=== PATIENT | male | born 1960 | race Caucasian/White ===

== ENCOUNTER 2020-02-25 21:45 | Emergency (ER) | payer BC, SELFPAY ==
[2020-02-25 21:46] VITALS: BP 172/104; PULSE 106; RESP 18; TEMP 36.7; O2SAT 95; BMI 36.9
--- NOTE | 2020-02-25 22:16 | ED.VISSUMM ---
- ER Visit Summary Date of Service: 02/25/20 Chief Complaint: [Body aches and fever] History of Present Illness: The patient is a 59 M [presents the emergency department complaint of body aches for couple of days. Patient states that he came home from work today and felt very achy and checked his temperature and it was 100.7. Patient has minimal cough. Patient denies sore throat. He denies rashes. He denies any exposures to anybody with COVID-19. Denies any sick contacts. He denies dysuria although he has had some frequency. He denies abdominal pain. Patient has had 2-3 episodes of diarrhea this afternoon. He has had no vomiting.] She has history of diabetes, hypertension, high cholesterol, and coronary artery disease. Physical Examination: [HEENT-PERRLA, EOMI. Cranial nerves II through XII grossly intact. TMs clear. Mucous membranes moist. No adenopathy. Cardiovascular-regular rate and rhythm without murmur or ectopy Lungs-clear to auscultation, chest wall stable without crepitus or subcu emphysema Abdomen-normoactive bowel sounds, soft, nontender, no rebound or rigidity, no peritoneal signs. Extremities-intact ?4, normal range of motion, normal pulses, atraumatic. No evidence of cellulitis.] Test Results: [CBC with differential was unremarkable. Chemistries unremarkable. COVID-19 test ordered and pending. Urinalysis unremarkable.] Emergency Department Course and Treatment: [9 established and patient was given normal saline.] Treatment Plan: [At this point I recommended self quarantining for 14 days. Patient should still quarantine even if COVID test negative as no other explanation at this time for the fever and body aches.] Disposition: [Discharged home in stable condition] Impression: [Viral syndrome-rule out COVID-19 infection] This note was generated with [employer] dictation software. It may contain incorrect words, spelling, and punctuation that were not noted in review of the chart prior to signing ED Disposition - Plan for ED Patient: Referrals: Farhat Gómez DO [Primary Care Provider] -
[2020-02-25] MEDS: 0.9% Normal Saline 1,000 ML 150 ML IV (22:45)
[2020-02-25 22:49] VITALS: BP 162/99; PULSE 104; RESP 16; TEMP 36.7; O2SAT 98
[2020-02-25 22:58] LABS: Absolute Neutrophil Count 6.5 X10^3/uL (2.0-7.7); Basophil# 0.02 X10^3/uL; Basophil% 0.3 % (0-1); Eosinophil# 0.04 X10^3/uL; Eosinophils% 0.5 % (0-5); Hematocrit 40.1 % (40-54); Hemoglobin 13.4 g/dL (13.0-16.5); Lymphocyte % 9.3 % (19-41); Mean Corp Hgb Conc 33.4 g/dL (32-36); Mean Corpuscular Volume 92.8 fL (80-94); Mean Platelet Vol. 11.1 fl (6.2-12.0); Monocyte# 0.25 X10^3/uL; Monocyte% 3.3 % (0-10); NRBC Flagged by Analyzer 0 % (0-5); Neutrophil % 86.3 % (47-70); Platelet Count 217 K/mm3 (150-450); RBC Distribution Width CV 13.8 % (11.6-14.6); Red Blood Count 4.32 M/mm3 (4.6-6.2); White Blood Count 7.5 K/mm3 (4.4-11.0)
[2020-02-25 23:05] VITALS: BP 162/99; PULSE 104; RESP 15; O2SAT 98
[2020-02-25 23:10] LABS: Anion Gap 6 (5-15); BUN 14 mg/dL (7-18); Calcium,Total 8.8 mg/dL (8.5-10.1); Chloride 103 mmol/L (98-107); EST Glomerular Filtration Rate 81 mL/min (>60); Est Glom Filt Rate - Afr Amer 98 mL/min (>60); Estimated Creatinine Clearance 77.57 ml/min; Glucose 194 mg/dL (74-106); Potassium 3.9 mmol/L (3.5-5.1); Sodium Level 135 mmol/L (136-145)
[2020-02-25 23:16] LABS: Bacteria 0 SEEN /hpf (None Seen); Mucous, Urine 0 SEEN /hpf (<or=2+); Red Blood Cells-Urine 0 SEEN /hpf (0-5); Squamous Epithelial Cells - UA 0 SEEN /hpf (0-5); White Blood Cells 0 SEEN /hpf (0-5)
[2020-02-25 23:20] LABS: Lactic Acid 1.4 mmol/L (0.4-1.9)
[2020-02-25 23:27] LABS: Color, Urine Yellow (Yellow); Glucose, Dipstick 50 mg/dl (Normal); Ketone-Dipstick Negative (Negative); Leukocyte Esterase-Dipstick Negative /ul (Negative); Nitrite-Dipstick Negative (Negative); Occult Blood-Urine Negative /ul (Negative); Protein-Dipstick Negative (Negative); Specific Gravity, Urine 1.015 (1.002-1.030); Urine Bilirubin Dipstick Negative (Negative); Urine Clarity Clear (Clear); Urine Urobilinogen Normal (Normal)
--- NOTE | 2020-02-25 23:44 | ED.DEP ---
ED Disposition - Plan for ED Patient: Instructions: ED Viral Syndrome Referrals: Farhat Gómez DO [Primary Care Provider] - 5-7 Days
[2020-02-26 00:04] VITALS: PULSE 78; RESP 16; O2SAT 97
== END 2020-02-26 00:05 | disposition home or self-care (01) ==
LOC: ED 22:23
PROVIDERS: Emergency Provider Emergency Medicine; PCP Family Medicine
DX: B34.9 Viral infection, unspecified (principal); I25.10 Atherosclerotic heart disease of native coronary artery without angina pectoris; I10 Essential (primary) hypertension; E11.9 Type 2 diabetes mellitus without complications; E78.00 Pure hypercholesterolemia, unspecified; Z79.84 Long term (current) use of oral hypoglycemic drugs; Z79.899 Other long term (current) drug therapy
CPT/HCPCS: 80048; 81001; 83605; 85025; 87040; 87077; 87186; 87635; 96360; 99283; G2023; J7030; A4216; U0003

== ENCOUNTER 2020-11-07 04:12 | Observation (INO) | payer BC, SELFPAY ==
[2020-11-07] VITALS (9 sets, daily range): BP systolic 145–181; BP diastolic 85–120; PULSE 70–87; RESP 12–20; TEMP 36.1–36.8; O2SAT 96–98; BMI 34.6; BMI 34.1; BMI 34.2
--- NOTE | 2020-11-07 04:21 | EKG12_ITS ---
Test Reason : DYSRHYTHMIA Blood Pressure : / mmHG Vent. Rate : 085 BPM Atrial Rate : 085 BPM P-R Int : 158 ms QRS Dur : 094 ms QT Int : 382 ms P-R-T Axes : 057 -28 058 degrees QTc Int : 454 ms Normal sinus rhythm Septal infarct , age undetermined Inferior infarct , age undetermined Abnormal ECG Confirmed by NIRMALA BURK, DAVIAN ([id number]), health editor IDRIS GRIFFIN ([id number]) on 11/09/2020 1:39:12 PM Referred By: ALYSHA Confirmed By:DAVIAN SILVESTRE MD
--- NOTE | 2020-11-07 04:21 | RAD_ITS ---
HISTORY: Neuro deficit, acute, stroke suspected EXAM: XR Chest 1 View: COMPARISON: January 20, 2016 FINDINGS: # of images incl. paperwork: 1 Thoracolumbar spinal fixation surgery hardware is in place and incompletely imaged but unchanged Lungs are clear. Heart is not enlarged. No acute osseous pathology perceived. Pulmonary vascularity is distinct. No effusions. RAD/Chest 1 View IMPRESSION: No acute cardiopulmonary disease perceived. at 1231 Reported and signed by: Ramses Parker MD Electronically Signed: Ramses Parker MD at 5:30 EDT Tel , Service support ,
--- NOTE | 2020-11-07 04:22 | CT_ITS ---
We are attempting to reach an attending provider to discuss findings. An addendum with communication details will be sent when the communication is complete. History: Neuro deficit, acute, stroke suspected TECHNIQUE: Noncontrast axial images were obtained of the brain. Subsequently, routine carotid CT angiogram protocol was performed without and with IV contrast. In addition, images were obtained of the [place]. Nascet criteria using the distal ICAs for comparison were used for evaluation of stenoses. 3D reconstructions were reviewed. A radiation dose optimization technique was used for this scan. IV Contrast dosage and agent: IV 100mL [id number] COMPARISON: None FINDINGS: --CT BRAIN: BRAIN PARENCHYMA: No intra- or extra-axial hemorrhage. No evidence of acute infarct. No intracranial mass or mass effect. There is preservation of the bridges/white matter interface. Posterior fossa structures are unremarkable. Old lacunar infarct involving some of the right caudate nucleus, the anterior limb of the right internal capsule, and some of the anterior aspect of the lentiform nucleus. Physiologic calcification within the medial aspect of bilateral lentiform nuclei and deep and CSF SPACES: Appropriate for age. No hydrocephalus. Basal cisterns are patent. CALVARIUM, SKULL BASE, PARANASAL SINUSES AND MASTOID AIR CELLS: Clear. No discrete lytic or blastic abnormalities. ORBITS: Both globes, extraocular muscles, optic nerves and retrobulbar fat appear unremarkable. ASPECTS Score for Acute Strokes: 10 --CTA NECK: AORTIC ARCH AND BRANCHES: Normal anatomy, patent. RIGHT CCA: No occlusion, significant stenosis or dissection. RIGHT ICA: No occlusion, significant stenosis or dissection. LEFT CCA: No occlusion, significant stenosis or dissection. Within the left carotid bulb and LEFT ICA: No occlusion, significant stenosis or dissection. RIGHT VERTEBRAL ARTERY: No occlusion, significant stenosis or dissection. LEFT VERTEBRAL ARTERY: No occlusion, significant stenosis or dissection. NECK SOFT TISSUES: Unremarkable. --CTA HEAD: --Anterior circulation: ICAs: No significant stenosis at the intracranial/visualized segments. ACAs: No significant stenosis at the visualized segments. ACOM: Present. MCAs: No significant stenosis at the visualized segments. --Posterior circulation: PCOMs: Posterior communicating arteries are not perceived nozzle and sleeve worker: No significant stenosis at the visualized segments. BASILAR ARTERY: No significant stenosis. VERTEBRAL ARTERIES: No significant stenosis at the intradural/visualized segments. No evidence of intracranial aneurysm or vascular malformation. CT/STROKE CTA Head AND Neck W/Con IMPRESSION: Old lacunar infarct within the right basal ganglia. Some calcific plaque within the left carotid bulb with less than 20% stenosis. No aneurysm, occlusion, or dissection. Individualized dose optimization techniques were used for this CT. at 0554 Reported and signed by: Ramses Parker MD Electronically Signed: Ramses Parker MD at 5:53 EDT Tel , Service support ,
--- NOTE | 2020-11-07 04:23 | ED.DCSUM_ITS ---
History of Present Illness Chief Complaint: Weakness Informant: Patient, Significant Other Occurred: Today - JPTA Mechanism/Context: Same level fall Location: left elbow Quality of Pain: - - sore Current Severity: Mild Maximum Severity: Mild Worsened by: nothing Relieved by: nothing Associated Symptoms: Weakness - LLE, Inability to ambulate - transiently, couple mins. Negative for: Parasthesias, Loss of consciousness, Amnesia Narrative: Patient states he woke up in the middle of the night this morning to go use the bathroom, prior to getting out of bed he noticed that his left lower extremity did not seem to be working properly. He laid there for couple minutes trying to sort it out and then went to the bathroom and was able to walk to it okay. After using the bathroom, he turned to walk back to his bed, but his left leg seemed to give out on him causing him to fall to the floor versus his left elbow, without any other injury, and while on the floor he noticed his left leg was weak and he was unable to get up as result of it until eventually he was ab le to. He states there was no numbness at any point in time. He denies any trouble speaking or understanding others or numbness or weakness in either one of his arms. - Past Medical History (1) Type 2 diabetes mellitus Status: Chronic (2) HTN (hypertension) Status: Chronic Past Medical History - Allergies and Home Meds Allergies/Adverse Reactions: Allergies No Known Allergies Allergy (Verified 11/07/20 04:22) Primary Care Physician: Farhat Gómez DO [Primary Care Provider] - Surgical History: herniorrhaphy, total knee arthroplasty - arthroscopic knee alcantara rgery on both knees. Lives: Spouse/ Significant Other Smoking Status: Former smoker Review of Systems General: Denies: Chills, Fever, Sweats Eyes: Denies: Visual changes - bilaterally, Diplopia ENT: Denies: Rhinorrhea, Sore throat Cardiovascular: Denies: Chest pain, Palpitations Respiratory: Denies: Dyspnea, Cough, Dyspnea on exertion Gastrointestinal: Denies: Abdominal pain, Nausea, Vomiting, Diarrhea, Melena, Hematochezia Genitourinary: Denies: Dysuria, Hematuria, Frequency Musculoskeletal: Denies: Back pain, Extremity Pain Skin: Reports: Wounds. Denies: Rash Neurological: Reports: Weakness. Denies: Headache, Parasthesia, Numbness Physical Exam Vital Signs/Narrative: Vital Signs Temp Pulse Resp BP Pulse Ox 11/07/20 04:15 97.8 F 87 20 H 181/120 H 97 NIH Stroke Scale/Score (NIHSS) from [place] on 11/07/2020 All calculations should be rechecked by clinician prior to use RESULT SUMMARY: 0 points NIH Stroke Scale INPUTS: 1A: Level of consciousness ?> 0 = Alert; keenly responsive 1B: Ask month and age ?> 0 = Both questions right 1C: 'Blink eyes' & 'squeeze hands' ?> 0 = Performs both tasks 2: Horizontal extraocular movements ?> 0 = Normal 3: Visual baig ?> 0 = No visual loss 4: Facial palsy ?> 0 = Normal symmetry 5A: Left arm motor drift ?> 0 = No drift for 10 seconds 5B: Right arm motor drift ?> 0 = No drift for 10 seconds 6A: Left leg motor drift ?> 0 = No drift for 5 seconds 6B: Right leg motor drift ?> 0 = No drift for 5 seconds 7: Limb Ataxia ?> 0 = No ataxia 8: Sensation ?> 0 = Normal; no sensory loss 9: Language/aphasia ?> 0 = Normal; no aphasia 10: Dysarthria ?> 0 = Normal 11: Extinction/inattention ?> 0 = No abnormality Inital Vital Signs reviewed: Yes General: Well nourished, Well developed, - - NAD Head: Normocephalic, Atraumatic Eyes: Perrl, EOMI ENT: TM's clear, No hemotympanum or drainage, No trauma Neck: Nontender, Full ROM Cardiovascular: Regular rate, Regular rhythm, No murmurs. Negative for: Tachycardia Respiratory: No distress, CTA bilaterally, Chest nontender Abdomen: Soft, Nontender, Nondistended, Normal bowel sounds Back: Nontender Extremeties: 1 cm full-thickness laceration with venous oozing, clean, no foreign material, at the tip of the left olecranon. No other injuries. Full range of motion throughout all joints of all 4 extremities, no bony tenderness. Skin: Normal color, No rash Neurological: Alert, Oriented x3, Cranial nerves II-XII grossly intact, Normal Strength, Normal Sensation, Normal Gait Psychological: Normal affect, Normal Mood Diagnostic/Tx/Re-eval Chest X-Ray - ED: 1 View, Read by ED Physician, No Acute Disease, No Infiltrates Impressions Chest X-Ray 11/07/20 04:21 IMPRESSION: No acute cardiopulmonary disease perceived. at 0531 Reported and signed by: Ramses Parker MD Electronically Signed: Ramses Parker MD at 5:30 EDT Tel , Service support , Head/Neck CTA 11/07/20 04:22 IMPRESSION: Old lacunar infarct within the right basal ganglia. Some calcific plaque within the left carotid bulb with less than 20% stenosis. No aneurysm, occlusion, or dissection. Individualized dose optimization techniques were used for this CT. at 0554 Reported and signed by: Ramses Parker MD Electronically Signed: Ramses Parker MD at 5:53 EDT Tel , Service support , ADDENDUM: 11/07/20 0622 IMPRESSION: Old lacunar infarct within the right basal ganglia. Some calcific plaque within the left carotid bulb with less than 20% stenosis. No aneurysm, occlusion, or dissection. Individualized dose optimization techniques were used for this CT. at 0554 Reported and signed by: Ramses Parker MD N.B. : The above information has been verbally conveyed by Ramses Parker MD to Dr. Finn Mendez MD, on 11/07/2020 06:15:08 (ET). Electronically Signed: Ramses Parker MD at 5:53 EDT Tel , Service support , 11/07/20 04:21 Chest 1 View [RAD] Stat 11/07/20 04:22 STROKE CTA Head AND Neck W/Con [CT] Stat Laboratory Results 11/07/20 11/07/20 11/07/20 04:36 04:41 04:41 WBC 4.7 RBC 4.82 Hgb 14.9 Hct 45.0 MCV 93.4 MCH 30.9 MCHC 33.1 RDW Std Deviation 49.6 H RDW Coeff of Dio 14.4 Plt Count 218 MPV 11.1 Immature Gran % (Auto) 0.000 Neut % (Auto) 54.1 Lymph % (Auto) 27.3 Edgar % (Auto) 14.8 H Eos % (Auto) 3.2 Baso % (Auto) 0.6 Absolute Neuts (auto) 2.5 Absolute Lymphs (auto) 1.27 Nucleated RBC % 0 PT 12.3 INR 1.0 APTT 27.2 Sodium Potassium Chloride Carbon Dioxide Anion Gap BUN Creatinine Estim Creat Clear Calc Est GFR (MDRD) Af Amer Est GFR (MDRD) Non-Af BUN/Creatinine Ratio Glucose Calcium Troponin I POC Glucose 175 H 11/07/20 04:41 WBC RBC Hgb Hct MCV MCH MCHC RDW Std Deviation RDW Coeff of Dio Plt Count MPV Immature Gran % (Auto) Neut % (Auto) Lymph % (Auto) Edgar % (Auto) Eos % (Auto) Baso % (Auto) Absolute Neuts (auto) Absolute Lymphs (auto) Nucleated RBC % PT INR APTT Sodium 139 Potassium 4.2 Chloride 106 Carbon Dioxide 26.0 Anion Gap 7 BUN 22 H Creatinine 0.90 Estim Creat Clear Calc 90.64 Est GFR (MDRD) Af Amer 111 Est GFR (MDRD) Non-Af 91 BUN/Creatinine Ratio 24.6 H Glucose 191 H Calcium 9.1 Troponin I < 0.015 POC Glucose - Rhythm Strip Rhythm Strip: Sinus Rhythm Rate: 85 Ectopy: None - EKG Initial EKG Interpretation: Sinus Rhythm, No Acute Injury Pattern, - - old inf and ant- septal infarcts Prior: Unchanged - relatively, when compared w/ last EKG which was when pt had ant-septal STEMI - Medical Decision Making CT angiography is negative for anything acute. Patient remained symptom-free with an NIHSS of 0 on multiple reevaluations. His pressure remained elevated but it did come down compared to what it started out, down to 155/104. Given that this patient has history of coronary disease, I am concerned about the possibility that this could have been a TIA however he had significant weakness in his leg that lasted very short period of time relatively. His ABCD 2 score is 4, assuming that the duration of his weakness was less than 10 minutes. Given this, I think admitting him for further work-up would be reasonable. Certainly this could have been a transient peripheral neuropathy and not [employer] in origin, however he does have an old lacunar infarct seen on the CT (with no history of a clinical stroke) as well as some carotid disease, so I think admitting for stroke work-up is reasonable. Procedures - Lacerations Left elbow Length: 1 cm Depth: Fascia - Olecranon bursa seen within the wound Shape: Linear Prep: Sterile Conditions, Chlorhexadine Laceration Repair: Lidocaine with epi - 0.5 cc Irrigated (ml): 50 Number of Sutures/Kane: 1 Suture Information: Simple, Horizontal, Mattress, 4-0 ED Disposition - Plan for ED Patient: Disposition: Acute Care Hospital [facility] [place] Diagnosis: Transient left leg weakness, Laceration of left elbow Referrals: Farhat Gómez DO [Primary Care Provider] -
[2020-11-07] MEDS: Lidocaine/Epi/Tetracaine 50 ML 1 APPLIC TOPICAL (04:44)
[2020-11-07] MEDS: Contrast Allergy Safety Check IV (04:44)
[2020-11-07] MEDS: Lidocaine 1% /Epi 1:100 (20ml) 20 ML Vial INFILT (04:44)
[2020-11-07 04:50] LABS: Bedside Glucose 175 mg/dL (70-110)
[2020-11-07 04:51] LABS: Absolute Lymphocyte Count 1.27 X10^3/uL (0.83-4.51); Absolute Neutrophil Count 2.5 X10^3/uL (2.0-7.7); Basophil# 0.03 X10^3/uL; Basophil% 0.6 % (0-1); Eosinophil# 0.15 X10^3/uL; Eosinophils% 3.2 % (0-5); Hemoglobin 14.9 g/dL (13.0-16.5); Lymphocyte # 1.27 X10^3/ul (4.0); Lymphocyte % 27.3 % (19-41); Mean Corp Hgb Conc 33.1 g/dL (32-36); Mean Corpuscular Hgb 30.9 pg (27.0-32.0); Mean Corpuscular Volume 93.4 fL (80-94); Mean Platelet Vol. 11.1 fl (6.2-12.0); Monocyte# 0.69 X10^3/uL; Monocyte% 14.8 % (0-10); NRBC Flagged by Analyzer 0 % (0-5); Neutrophil # 2.52 X10^3/uL (2.7-7.7); Neutrophil % 54.1 % (47-70); Platelet Count 218 K/mm3 (150-450); RBC Distribution Width CV 14.4 % (11.6-14.6); RBC Distribution Width SD 49.6 fl (35.1-43.9); Red Blood Count 4.82 M/mm3 (4.6-6.2); White Blood Count 4.7 K/mm3 (4.4-11.0)
[2020-11-07 05:00] LABS: Prothrombin Time (Protime)PT. 12.3 SECONDS (11.7-14.9)
[2020-11-07 05:01] LABS: Partial Thromboplast Time 27.2 Seconds (24.1-36.2)
[2020-11-07 05:10] LABS: Anion Gap 7 (5-15); BUN 22 mg/dL (7-18); BUN/Creat Ratio 24.6 RATIO (10-20); Calcium,Total 9.1 mg/dL (8.5-10.1); Chloride 106 mmol/L (98-107); EST Glomerular Filtration Rate 91 mL/min (>60); Est Glom Filt Rate - Afr Amer 111 mL/min (>60); Estimated Creatinine Clearance 90.64 ml/min; Glucose 191 mg/dL (74-106); Potassium 4.2 mmol/L (3.5-5.1); Sodium Level 139 mmol/L (136-145)
--- NOTE | 2020-11-07 06:16 | PCM.HP.STD ---
Problem List (1) TIA (transient ischemic attack) Status: Acute (2) Hyperlipidemia Status: Chronic Qualifiers: Hyperlipidemia type: unspecified Qualified Code(s): E78.5 - Hyperlipidemia, unspecified (3) CAD (coronary artery disease) Status: Chronic Qualifiers: Coronary Disease-Associated Artery/Lesion type: unspecified vessel or lesion type [place] vs. transplanted heart: unspecified whether [place] or transplanted heart Associated angina: angina presence unspecified Qualified Code(s): I25.10 - Atherosclerotic heart disease of [place] coronary artery without angina pectoris (4) History of RI (myocardial infarction) Status: Chronic (5) HTN (hypertension) Status: Chronic Qualifiers: Hypertension type: essential hypertension Qualified Code(s): I10 - Essential (primary) hypertension (6) Type 2 diabetes mellitus Status: Chronic Qualifiers: Diabetes mellitus long term care phlebotomist insulin use: without long term care phlebotomist use Diabetes mellitus complication status: with other specified complication Qualified Code(s): E11.69 - Type 2 diabetes mellitus with other specified complication History of Present Illness Date of Admission: 11/07/20 Chief Complaint: L sided weakness, fall The patient is a 60 y/o M w/ PMHx: HTN, HLD, CAD s/p prior STEMI w/ PCI x 2, Obesity, Diabetes mellitus type II who presents to the [facility] ED on 11/07/20 with history of awakening in the middle of the night to use the restroom and upon getting out of bed noted that his left lower extremity did not seem to be working properly however he then notes he was able to lay there and assess his self for couple minutes and reattempt with success however upon returning back to bed following usage of the bathroom his left lower extremity appear to give out on him prompting him to fall onto his left side specifically his elbow with again noticed left lower extremity weakness however he was eventually able to use it with no paresthesias at any point with eventual ED evaluation. In the emergency room patient was noted to have a 1 cm full-thickness laceration of the left elbow with ED evaluation and sutures placed. Work-up in the ED included T 97.8, heart rate 87, BP initially 181/120 with repeat 155/104, respiratory rate 20, 97% on room air, CBC with WC 4.7, hemoglobin 14.9, platelet 218 without marked shift, unremarkable coags, BMP with BUN/creatinine 22/0.90, glucose 191, troponin less than 0.015, chest x-ray with no acute cardiopulmonary findings, CTA head and neck with noted old lacunar infarct within the right basal ganglia, some calcified plaque within left carotid bulb less than 20% stenosis with no aneurysm, occlusion or dissection, EKG with sinus rhythm with evidence of old inferior anterior septal infarcts unchanged compared to prior with no acute evidence of ischemia,. In the ED patient administered normal saline, lidocaine/epinephrine injection and topical regimen utilized prior to suturing. In the ED NH stroke scale per ED physician noted to be 0 with resolution upon ED presentation. Discussed frankly medications with patient and he has not been taking even baby aspirin despite his history of PCI and has not been on his statin since discontinuation of dual antiplatelet however at that time he thought he was post to continue all medication. Past Medical History Past Medical History (Chronic Problems): Chronic Problems Type 2 diabetes mellitus (Chronic) HTN (hypertension) (Chronic) Hyperlipidemia (Chronic) CAD (coronary artery disease) (Chronic) History of RI (myocardial infarction) (Chronic) Allergies No Known Allergies Allergy (Verified 11/07/20 04:22) Home Medications: Ambulatory Orders Medication Instructions Recorded Carvedilol [Coreg] 3.125 mg PO DAILY 02/26/16 Ascorbic Acid [Vitamin C] 1,000 mg PO DAILY 02/25/20 Lisinopril 20 mg PO DAILY 02/25/20 Magnesium Oxide [Magnesium] 400 mg PO DAILY 02/25/20 Saw Jackson 160 mg PO DAILY 02/25/20 Tumeric 1 tab PO DAILY 02/25/20 Dapagliflozin Propanediol [Farxiga] 1 tablet PO DAILY 11/07/20 Glipizide 5 mg PO DAILY 11/07/20 Ubidecarenone [Co Q-10] 10 mg PO DAILY 11/07/20 Surgical History: herniorrhaphy, total knee arthroplasty - Arthroscopic knee surgery on both knees., - - PCI x 2, LUC. Psychiatric History: No pertinent psych hx Lives: Spouse/ Significant Other Smoking Status: Former smoker - Smoked as a high school freshman until 1998, 1 ppd cigarette tobacco use until quitting. Tobacco Use: Non-smoker Alcohol: None Drugs: None - *Family History Maternal History Items: Cancer - Mother reportedly with a history of bone cancer. Paternal History Items: Stroke Review of Systems Constitutional: Reports: Fatigue. Denies: Chills, Fever, Weight Change HEENT: Denies: Head Aches, Sinus Congestion, Sinus Drainage Cardiovascular: Denies: Chest Pain, Palpitations Respiratory: Denies: Cough, Shortness of breath at rest, Sputum production Gastrointestinal: Denies: Abdominal Pain, Nausea, Vomiting Genitourinary: Denies: Dysuria Musculoskeletal: Reports: Arm Pain, Joint stiffness, Joint swelling, Joint Tenderness. Denies: Joint Pain Skin: Reports: Skin Changes. Denies: Rash, Wounds Neurological: Reports: Focal weakness. Denies: Numbness, Tingling Psychiatric: Denies: Anxiety, Depression, Homicidal Ideations, Suicidal Ideations Hematologic/ Lymphatic: Denies: Easy Bruising, Easy Bleeding VTE Information - Inpt Only VTE Present on Admission: No VTE Mechan Device Prophylaxis: SCD's VTE Pharm Prophylaxis ordered?: Yes Patient Problems: Active and Suspected Problems Transient left leg weakness (Acute) Laceration of left elbow (Acute) Subjective: Patient seated upright in the bed, no acute distress, notes continued resolution of prior left lower extremity weakness, sore left elbow. Objective: Physical Examination: General: awake, alert, oriented x 3 and cooperative, seated upright in the ED bed in no apparent distress. Skin: normal color, turgor, no icterus, cyanosis except left elbow with suturing status post laceration, no bleeding currently. HEENT: AT/NC, EOMI, PERRLA, MMM, no carotid bruits or JVD noted. Lungs: Diminished breath sounds, greater bases, moderate effort, no rales, ronchi or wheezing. Heart: Regular rate and rhythm; no gallop, rub audible. Abdomen: soft, obese, NTTP, ND, normal BS, no HSM. Extremities: no cyanosis, clubbing, or edema, see skin with noted elbow laceration status post repair with sutures in place. Neurological: patient awake, alert, oriented as noted; cognitive function intact; pupils equally reactive to light and accomodation; cranial nerves II-XII grossly normal, moving all 4 extremities, no focal deficits, strength preserved, sensation intact, [id number] and [id number] appropriate bilaterally, negative Babinski. Psychiatric: affect appears mildly fatigued otherwise normal, no acute evidence of depressive or anxiety feelings. - Physical Exam Vitals/I&O's: Vital Signs Temp Pulse Resp BP Pulse Ox 97.8 F 73 12 155/104 H 96 11/07/20 04:15 11/07/20 04:28 11/07/20 04:28 11/07/20 04:28 11/07/20 04:28 Oxygen Delivery Method Room Air Weight: 248 lb 3.848 oz Body Mass Index (BMI) 34.6 Finger Stick Blood Glucose 175 Laboratory Results 11/07/20 04:36: POC Glucose 175 H 11/07/20 04:41: WBC 4.7, RBC 4.82, Hgb 14.9, Hct 45.0, MCV 93.4, MCH 30.9, MCHC 33.1, RDW Std Deviation 49.6 H, RDW Coeff of Dio 14.4, Plt Count 218, MPV 11.1, Immature Gran % (Auto) 0.000, Neut % (Auto) 54.1, Lymph % (Auto) 27.3, [place] % (Auto) 14.8 H, Eos % (Auto) 3.2, Baso % (Auto) 0.6, Absolute Neuts (auto) 2.5, Absolute Lymphs (auto) 1.27, Nucleated RBC % 0 11/07/20 04:41: PT 12.3, INR 1.0, APTT 27.2 11/07/20 04:41: Sodium 139, Potassium 4.2, Chloride 106, Carbon Dioxide 26.0, Anion Gap 7, BUN 22 H, Creatinine 0.90, Estim Creat Clear Calc 90.64, Est GFR (MDRD) Af Amer 111, Est GFR (MDRD) Non-Af 91, BUN/Creatinine Ratio 24.6 H, Glucose 191 H, Calcium 9.1, Troponin I < 0.015 Current Medications Sodium Chloride 1,000 ml/ N/A 1,000 mls @ 112.6 mls/hr IV .[id number] RUFINO Stop: 11/08/20 04:26 Last Admin: 11/07/20 04:44 Dose: 1 ml/kg/hr, 112.6 mls/hr Documented by: Iopamidol (Contrast Allergy Safety Check) 0 ml IV X1 RUFINO Last Admin: 11/07/20 04:44 Dose: 1 ml Documented by: Labetalol HCl (Labetalol (Prefilled) 20 Mg/4 Ml) 20 mg IV X1 PRN PRN Reason: BLOOD PRESSURE Assessment/Plan All Active Problems Transient left leg weakness (Acute) Laceration of left elbow (Acute) TIA (transient ischemic attack) (Acute) The patient is a 60 y/o M w/ PMHx: HTN, HLD, CAD s/p prior STEMI w/ PCI x 2, Obesity, Diabetes mellitus type II who presents to the [facility] ED on 11/07/20 with history of awakening in the middle of the night to use the restroom and upon getting out of bed noted that his left lower extremity did not seem to be working properly however he then notes he was able to lay there and assess his self for couple minutes and reattempt with success however upon returning back to bed following usage of the bathroom his left lower extremity appear to give out on him prompting him to fall onto his left side. 1. Transient left lower extremity weakness with fall concerning for TIA/CVA with CT evidence prior CVA: CTA neck in the ED with evidence of prior old lacunar infarct within the right basal ganglia unknown to patient with mild left-sided carotid bulb less than 20% carotid disease. Will admit to PCU, will obtain MRI Brain, ECHO, PT/OT/Speech/Nutrition evaluation per protocol. Will consult Neurology for evaluation once further work-up obtained. Will allow permissive HTN, add back patient daily baby asa, statin w/ AM FLP, fall precautions. Magnesium, TSH, FLP, hemoglobin A1c requested. L elbow with sutures placed, will need d/c sutures 1.5 weeks. 2. CAD, Hx Prior RI, STEMI: Noted prior history of anterior wall RI with PCI LAD times 09/05/2016 with ED evaluation and transfer to [facility] for cardiac evaluation with PCI, previously noted to be on Brilinta and aspirin as well as high-dose statin in addition to at that time Coreg, lisinopril and hydrochlorothiazide regimen. From current list not on high-dose statin, also not on aspirin both of which she has not been taking, permissive hypertension is noted. 3. Hypertension: We will maintain permissive hypertension, as needed agents as needed. 4. Hyperlipidemia: Not on statin per current list, will clarify, add back high-dose statin. FLP in AM. 5. Diabetes mellitus type II: Hold oral home regimen, ADA diet if passes bedside swallow evaluation, accu checks w/ ISS. 6. Obesity: Weight loss and lifestyle changes encouraged. 7. DVT prophylaxis: SCDs, Lovenox. OBSV E&M: 30741 Initial observation care L3
--- NOTE | 2020-11-07 07:04 | ECHOCS_ITS ---
Reason For Study: cva/tia Procedure This was a 2D Doppler, Color Flow transthoracic echocardiogram. The study was technically difficult. Due to body habitus. Left Ventricle Normal LV size. Mild concentric left ventricular hypertrophy. The estimated ejection fraction is 37 %. Stage 3 diastolic dysfunction. There are regional wall motion abnormalities as specified. Rison : Akinetic. Mid-Anterior : Akinetic. Mid-Lateral : Normal. Lateral-Basal: Normal. The rest of the wall segments are hypokinetic. Right Ventricle Normal RV size. Normal systolic function. Atria Normal left atrium. Normal right atrium. Mitral Valve Normal mitral valve. Tricuspid Valve Normal tricuspid valve. Aortic Valve The aortic valve is not well visualized. Pulmonic Valve The pulmonic valve is not well visualized. Great Vessels Normal aortic root. The pulmonary artery is normal size. Normal inferior vena cava. Pericardium/Pleural No pericardial effusion. Medication Diluted definity 3.0ml given slow IV push to enhance endocardial definition. MMode/2D Measurements & Calculations LVIDd: 5.0 cm IVSd: 1.3 cm Ao root diam: 3.3 cm LVIDs: 3.9 cm LVPWd: 1.2 cm FS: 20.8 % LAV(MOD-bp): 52.0 ml LA A4 area: 16.5 cm2 LA dimension(2D): 4.0 cm LAV(MOD-bp) Indexed: 22.7 ml/m2 LAV(MOD-sp2): 50.7 ml LAV(MOD-sp4): 48.6 ml Time Measurements MV dec time: 0.13 sec Doppler Measurements & Calculations MV E max gregorio: 104.2 cm/sec Lat Peak E' Gregorio: 3.5 cm/sec Med Peak E' Gregorio: 8.5 cm/sec MV A max gregorio: 47.9 cm/sec E/E' lat: 29.9 E/E' med: 12.3 MV E/A: 2.2 Ao V2 max: 119.0 cm/sec LV V1 max: 78.9 cm/sec PA V2 max: 79.9 cm/sec Ao max P.7 mmHg LV V1 max P.5 mmHg ECHO/Echo Complete W/ Contrast Interpretation Summary Normal LV size. Mild concentric left ventricular hypertrophy. The estimated ejection fraction is 37 %. Stage 3 diastolic dysfunction. Contrast injection was performed. Compared to previous study, the left ventricu lar systolic function has worsened.. Ordering Physician: Mary Jo Horne Referring Physician: Farhat Gómez Performed By: Sheela Ron RDCS, RVT
--- NOTE | 2020-11-07 07:04 | MRI_ITS ---
STUDY: MRI BRAIN WITHOUT CONTRAST REASON FOR EXAM: Male, 60 years old. CVA, LLE WEAKNESS, RESOLVED NOW TECHNIQUE: Standardized multiplanar fat and water weighted pulse sequences were obtained. COMPARISON: None. FINDINGS: T2 shine through of the old cystic infarct in the right medial globus pallidus and right periventricular white matter. No diffusion restriction to suspect acute or subacute ischemic infarct. Normal size of the ventricles and extra-axial spaces for the patient''s age. Normal remaining white matter of the supratentorial brain. Normal remaining basal ganglia. Normal thalami. There is no extra-axial fluid accumulation. Normal flow voids within the major intracranial circulation suggesting patency by spin echo criteria. Normal sella turcica, pituitary gland, infundibular stalk, optic chiasm and hypothalamus. Normal tectal plate and pineal gland. Normal midbrain, mckayla and medulla. Normal cerebellum. Normal basal cisterns. Normal bilateral temporal bones. Normal bilateral internal auditory canals. No demonstrated orbital abnormality, within the constraints of a routine brain study. Normal visualized paranasal sinuses. Normal calvarium and skull base. Normal visualized soft tissue structures. Normal visualized upper cervical spine. MRI/Brain without Contrast IMPRESSION: 1. 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 2. No MRI evidence of acute or subacute ischemic infarct. Electronically Signed: Gage Carlin MD at 11:20 EDT , Service support ,
[2020-11-07 07:36] LABS: Magnesium 2.4 mg/dL (1.6-2.6)
[2020-11-07] MEDS: 0.9% Normal Saline 1,000 ML 100 ML IV (08:16)
[2020-11-07 08:35] LABS: Bedside Glucose 156 mg/dL (70-110)
[2020-11-07] MEDS: Famotidine 20 MG Tablet PO (11:32)
[2020-11-07] MEDS: Enoxaparin 40 MG/0.4 ML Syringe SC (11:33)
[2020-11-07] MEDS: Aspirin 81 MG TAB.CHEW PO (11:33)
[2020-11-07] MEDS: Acetaminophen 325 MG Tablet 650 MG PO (11:36)
[2020-11-07 12:20] LABS: Bedside Glucose 166 mg/dL (70-110)
--- NOTE | 2020-11-07 12:22 | PCM.DC ---
- Discharge Diagnoses Current Active Problems: Current Active and Chronic Problems Type 2 diabetes mellitus (Chronic) HTN (hypertension) (Chronic) Transient left leg weakness (Acute) Laceration of left elbow (Acute) TIA (transient ischemic attack) (Acute) Hyperlipidemia (Chronic) CAD (coronary artery disease) (Chronic) History of NC (myocardial infarction) (Chronic) You will use the following diet at home:: Cardiac Discharge Activity: Return to Normal Activity Call your doctor if you observe: Shortness of breath, Dizziness, Fainting spells, Chest pain Allergies/Adverse Reactions: Allergies No Known Allergies Allergy (Verified 11/07/20 04:22) Medications to take at Discharge Ascorbic Acid [Vitamin C] 1,000 mg PO DAILY 02/25/20 Lisinopril 20 mg PO DAILY 02/25/20 Magnesium Oxide [Magnesium] 400 mg PO DAILY 02/25/20 Saw Greene 160 mg PO DAILY 02/25/20 Tumeric 1 tab PO DAILY 02/25/20 Aspirin [Aspirin, Baby] 81 mg PO DAILY@0800 #30 tab.chew 11/07/20 Atorvastatin Calcium [Lipitor] 80 mg PO QHS #30 tablet 11/07/20 Carvedilol [Coreg (Beta Tasia)] 12.5 mg PO BID #60 tab 11/07/20 Dapagliflozin Propanediol [Farxiga] 1 tablet PO DAILY 11/07/20 Glipizide 5 mg PO DAILY 11/07/20 Ubidecarenone [Co Q-10] 10 mg PO DAILY 11/07/20 The following prescriptions were given: Aspirin [Aspirin, Baby] 81 mg PO DAILY@0800 #30 tab.chew Transmission Status: Pending to [facility]/pharmacy #[id number] Carvedilol [Coreg (Beta Tasia)] 12.5 mg PO BID #60 tab Transmission Status: Pending to [facility]/pharmacy #[id number] Atorvastatin Calcium [Lipitor] 80 mg PO QHS #30 tablet Transmission Status: Pending to [facility]/pharmacy #[id number] Primary Care Physician: Farhat Gómez DO [Primary Care Provider] - Please follow up with your Primary Care Physician in: 1 Week Test Results: Test results from this visit will be discussed in further detail at your follow-up appointment, if applicable. Please Follow Up With: Wiley Pizano MD - Neurology When: 2 Weeks Please Follow Up With: Leroy Lawson MD - Cardiology When: 2 Weeks Proposed Discharge Date: 11/07/20
--- NOTE | 2020-11-07 12:23 | DS.PCM_ITS ---
<Cely Workman CONFERENCE INTERPRETER - Last Filed: 11/07/20 12:51> Discharge Date and Diagnosis - Problem List Patient Problems: Active and Suspected Problems Transient left leg weakness (Acute) Laceration of left elbow (Acute) TIA (transient ischemic attack) (Acute) Date of Admission: 11/07/20 Date of Discharge: 11/07/20 - Primary Discharge Diagnosis Acute Problems: Active Problems 1. TIA 2. CAD with history of PCI 3. Heart failure with reduced ejection fraction 4. Hypertension 5. Hyperlipidemia 6. Type 2 diabetes mellitus 7. Obesity - Secondary Discharge Diagnosis Chronic Problems: Chronic Problems Type 2 diabetes mellitus (Chronic) HTN (hypertension) (Chronic) Hyperlipidemia (Chronic) CAD (coronary artery disease) (Chronic) History of WV (myocardial infarction) (Chronic) Hospital Course and Treatment Imaging Results: Diagnostic Data Chest X-Ray 11/07/20 04:21 IMPRESSION: No acute cardiopulmonary disease perceived. at 0531 Reported and signed by: Ramses Parker MD Electronically Signed: Ramses Parker MD at 5:30 EDT Tel , Service support , Head/Neck CTA 11/07/20 04:22 IMPRESSION: Old lacunar infarct within the right basal ganglia. Some calcific plaque within the left carotid bulb with less than 20% stenosis. No aneurysm, occlusion, or dissection. Individualized dose optimization techniques were used for this CT. at 0554 Reported and signed by: Ramses Parker MD Electronically Signed: Ramses Parker MD at 5:53 EDT Tel , Service support , ADDENDUM: 11/07/20 0622 IMPRESSION: Old lacunar infarct within the right basal ganglia. Some calcific plaque within the left carotid bulb with less than 20% stenosis. No aneurysm, occlusion, or dissection. Individualized dose optimization techniques were used for this CT. at 0554 Reported and signed by: Ramses Parker MD N.B. : The above information has been verbally conveyed by Ramses Parker MD to Dr. Finn Mendez MD, on 11/07/2020 06:15:08 (ET). Electronically Signed: Ramses Parker MD at 5:53 EDT Tel , Service support , ADDENDUM: 11/07/20 0929 IMPRESSION: 1. No CTA evidence of any suspicious significant vaso-occlusive disease of the anterior and posterior intracranial circulation and no intracranial aneurysm, saccular or fusiform type. 2. Nonocclusive calcified plaques at the origin of the left internal carotid artery bulb. 3. Widely patent bilateral common carotid arteries, bilateral internal and external carotid arteries. 4. Widely patent dominant left vertebral artery in all 4 segments. 5. 50% stenosis at the subclavian origin of the nondominant right vertebral artery due to calcified plaque. The remaining intrathoracic segment, the V2, V3 and V4 segments of the right vertebral artery are widely patent. 6. Normal aortic arch and origins of the great vessels. Electronically Signed: Gage Carlin MD at 9:22 EDT , Service support , N.B. : The above information has been verbally conveyed by Ramses Parker MD to Dr. Finn Mendez MD, on 11/07/2020 06:15:08 (ET). ADDENDUM: 11/07/20 0945 Brain MRI 11/07/20 07:04 IMPRESSION: 1. 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 2. No MRI evidence of acute or subacute ischemic infarct. Electronically Signed: Gage Carlin MD at 11:20 EDT , Service support , Echocardiogram 11/07/20 07:04 Interpretation Summary Normal LV size. Mild concentric left ventricular hypertrophy. The estimated ejection fraction is 37 %. Stage 3 diastolic dysfunction. Contrast injection was performed. Compared to previous study, the left ventricular systolic function has worsened.. Ordering Physician: Mary Jo Horne Referring Physician: Farhat Gómez Performed By: Sheela Ron, JENNIFER, RVT Operations: None Procedures: 2-D Echocardiogram Summary of Care Provided: The patient is a 60 year old M admitted 11/07/2020 due to transient left-sided weakness. 1. EPV-axiy-qbdxb weakness has resolved. MRI demonstrates old infarcts, no acute or subacute infarct. CTA of head and neck, patent carotid arteries. 50% stenosis of the subclavian origin of the nondominant right vertebral artery. Continue aspirin, high-dose statin. Follow-up with neurology in 2 weeks. 2. CAD with history of PCI-continue aspirin, statin, carvedilol, lisinopril. Carvedilol increased to 12.5 mg twice daily. 3. Heart failure with reduced ejection fraction-echocardiogram demonstrates an EF of 37%, stage III diastolic dysfunction. Previous echo in 2016 demonstrated an EF of 50%. Patient has not followed with cardiology following WV/PCI in 2016. Continue beta-tasia, JO inhibitor. Referred to cardiology for further outpatient evaluation. 4. Hypertension-continue lisinopril, carvedilol increased as noted above. 5. Hyperlipidemia-continue high-dose statin. 6. Type 2 diabetes mellitus-continue home oral regimen. 7. Obesity-encouraged diet and lifestyle modifications. Patient seen and examined prior to discharge. Physical assessment as noted below. Patient is stable for discharge with follow up recommendations as noted above. This patient was seen by MONTSE Cruz under the supervision of Dr. Lovell. Patient Problems: Active and Suspected Problems Transient left leg weakness (Acute) Laceration of left elbow (Acute) TIA (transient ischemic attack) (Acute) - Physical Exam Vitals/I&O's: Vital Signs Temp Pulse Resp BP Pulse Ox 97.5 F L 78 16 150/97 H 97 11/07/20 11:28 11/07/20 11:28 11/07/20 11:28 11/07/20 11:28 11/07/20 11:28 Oxygen Delivery Method Room Air Weight: 244 lb 14.937 oz Body Mass Index (BMI) 34.1 Finger Stick Blood Glucose 175 Intake and Output for Last 24 Hours 11/05/20 11/06/20 11/07/20 23:59 23:59 23:59 Intake Total 1381.26 / 1381.26 Balance 1381.26 / 1381.26 General: Alert, Oriented x3, Cooperative HEENT: Atraumatic, PERRLA, EOMI, Normocephalic Neck: Supple, No JVD, Negative Carotid Bruits Lungs: Clear to auscultation, Normal air movement Cardiovascular: Regular rate, No murmurs Abdomen: Bowel Sounds Present, Soft, Non Tender Extremities: No edema, Capillary Refill Less than 3 Seconds Skin: No rashes, No breakdown Musculoskeletal: No Tenderness to Palpation of Joints or Extremities Neurological: Cranial nerves II-XII grossly intact, Neuro grossly intact Psych/Mental Status: Normal Affect, Appropriate Laboratory Results 11/07/20 04:36: POC Glucose 175 H 11/07/20 04:41: WBC 4.7, RBC 4.82, Hgb 14.9, Hct 45.0, MCV 93.4, MCH 30.9, MCHC 33.1, RDW Std Deviation 49.6 H, RDW Coeff of Dio 14.4, Plt Count 218, MPV 11.1, Immature Gran % (Auto) 0.000, Neut % (Auto) 54.1, Lymph % (Auto) 27.3, [place] % (Auto) 14.8 H, Eos % (Auto) 3.2, Baso % (Auto) 0.6, Absolute Neuts (auto) 2.5, Absolute Lymphs (auto) 1.27, Nucleated RBC % 0 11/07/20 04:41: PT 12.3, INR 1.0, APTT 27.2 11/07/20 04:41: Sodium 139, Potassium 4.2, Chloride 106, Carbon Dioxide 26.0, Anion Gap 7, BUN 22 H, Creatinine 0.90, Estim Creat Clear Calc 90.64, Est GFR (MDRD) Af Amer 111, Est GFR (MDRD) Non-Af 91, BUN/Creatinine Ratio 24.6 H, Glucose 191 H, Calcium 9.1, Troponin I < 0.015 11/07/20 04:41: Magnesium 2.4 11/07/20 08:13: POC Glucose 156 H 11/07/20 11:42: POC Glucose 166 H Current Medications Acetaminophen (Acetaminophen 325 Mg Tablet) 650 mg PO Q6H PRN PRN PRN Reason: Pain Score 1-10/Temp > 100.7 F Last Admin: 11/07/20 11:36 Dose: 650 mg Documented by: Al Hydroxide/Mg Hydroxide (Mag Hydrox/Al Hydrox/Simeth 30 Ml Udc) 30 ml PO Q6H PRN PRN PRN Reason: Gastric Burning Albuterol Sulfate (Albuterol 2.5 Mg/3 Ml Vial.Neb.) 2.5 mg INHALATION Q2H PRN PRN PRN Reason: Dyspnea, wheezing Aspirin (Aspirin 81 Mg Tab.Chew) 81 mg PO DAILY@0800 [facility] Last Admin: 11/07/20 11:33 Dose: 81 mg Documented by: Atorvastatin Calcium (Atorvastatin Calcium 80 Mg Tablet) 80 mg PO QHS [facility] Carvedilol (Carvedilol 3.125 Mg Tablet) 3.125 mg PO BID [facility] Enoxaparin Sodium (Enoxaparin 40 Mg/0.4 Ml Syringe) 40 mg SC DAILY [facility] Last Admin: 11/07/20 11:33 Dose: 40 mg Documented by: Famotidine (Famotidine 20 Mg Tablet) 20 mg PO BID [facility] Last Admin: 11/07/20 11:32 Dose: 20 mg Documented by: Guaifenesin (Guaifenesin 10 Ml Udc (200mg/10ml)) 20 ml PO Q4H PRN PRN PRN Reason: COUGH Hydralazine HCl (Hydralazine 20 Mg/Ml Vial) 5 mg IV Q30M PRN PRN Reason: to maintain BP goals Sodium Chloride () 1,000 mls @ 100 mls/hr IV .Q10H [facility] Last Infusion: 11/07/20 11:30 Dose: 100 mls/hr Documented by: Insulin Human Lispro (Insulin Lispro 100 Unit/Ml Insuln.Pen) 0 unit SC ACHS [facility]; Protocol Last Admin: 11/07/20 08:16 Dose: Not Given Documented by: Labetalol HCl (Labetalol (Prefilled) 20 Mg/4 Ml) 10 - 20 mg IV Q10M PRN PRN PRN Reason: to Maintain BP Goals Lisinopril (Lisinopril 5 Mg Tablet) 5 mg PO DAILY RUFINO Magnesium Hydroxide (Magnesium Hydroxide 30 Ml Udc) 30 ml PO DAILY PRN PRN PRN Reason: Constipation Melatonin (Melatonin 3 Mg Tablet) 3 mg PO QHS PRN PRN PRN Reason: INSOMNIA Nitroglycerin (Nitroglycerin (Inpatient Use) 0.4 Mg Tab.Subl) 0.4 mg SL Q5M PRN PRN Reason: CARDIAC/CHEST PAIN Ondansetron HCl (Ondansetron 4 Mg/2 Ml Vial) 4 mg IV Q8H PRN PRN PRN Reason: NAUSEA/VOMITING Oxycodone HCl (Oxycodone 5 Mg Tablet) 5 mg PO Q4H PRN PRN PRN Reason: Pain Score 4-10 Prochlorperazine Edisylate (Prochlorperazine 10 Mg/2 Ml Vial) 5 mg IV Q4H PRN PRN PRN Reason: Breakthrough Nausea/Vomiting Psyllium Hydrophilic Mucilloid (Psyllium 1 Packet) 1 packet PO DAILY PRN PRN PRN Reason: Constipation Senna/Docusate Sodium (Senna/Docusate Sodium 1 Tablet) 2 tablet PO BID PRN PRN PRN Reason: Constipation Sodium Chloride (0.9% Saline Lock 10 Ml Syringe) 10 - 40 ml IV UD PRN PRN Reason: SALINE FLUSH Throat Lozenges (Benzocaine/Menthol 1 Lozenge) 1 lozenge MUCOUS MEM Q2H PRN PRN PRN Reason: SORE THROAT Discharge Diet: Low fat/ Low Cholesterol Discharge Activity: Return to Normal Activity Call your doctor if you observe: Shortness of breath, Dizziness, Fainting spells, Chest pain Home Medications: Medications to take at Discharge Ascorbic Acid [Vitamin C] 1,000 mg PO DAILY 02/25/20 Lisinopril 20 mg PO DAILY 02/25/20 Magnesium Oxide [Magnesium] 400 mg PO DAILY 02/25/20 Saw [place] 160 mg PO DAILY 02/25/20 Tumeric 1 tab PO DAILY 02/25/20 Aspirin [Aspirin, Baby] 81 mg PO DAILY@0800 #30 tab.chew 11/07/20 Atorvastatin Calcium [Lipitor] 80 mg PO QHS #30 tablet 11/07/20 Carvedilol [Coreg (Beta Tasia)] 12.5 mg PO BID #60 tab 11/07/20 Dapagliflozin Propanediol [Farxiga] 1 tablet PO DAILY 11/07/20 Glipizide 5 mg PO DAILY 11/07/20 Ubidecarenone [Co Q-10] 10 mg PO DAILY 11/07/20 Following Prescriptions Were Given to Patient: Aspirin [Aspirin, Baby] 81 mg PO DAILY@0800 #30 tab.chew Transmission Status: Received by [facility]/pharmacy #[id number] Carvedilol [Coreg (Beta Tasia)] 12.5 mg PO BID #60 tab Transmission Status: Received by [facility]/pharmacy #[id number] Atorvastatin Calcium [Lipitor] 80 mg PO QHS #30 tablet Transmission Status: Received by [facility]/pharmacy #[id number] Primary Care Physician: Farhat Gómez DO [Primary Care Provider] - Please follow up with your Primary Care Physician in: 1 Week Please Follow Up With: Wiley Pizano MD - Neurology When: 2 Weeks Please Follow Up With: Leroy Lawson MD - Cardiology When: 2 Weeks Disposition: Home Minutes spent on discharge:: 35 Patient Condition:: Stable Medical Necessity - Tobacco Use Smoking Status: Former smoker Tobacco Use: Non-smoker Meaningful Use Info Meaningful Use Diagnoses (Choose all that apply): None applicable <Dina Lovell - Last Filed: 11/07/20 13:59> Discharge Date and Diagnosis - Primary Discharge Diagnosis Acute Problems: Active Problems Transient left leg weakness (Acute) Laceration of left elbow (Acute) TIA (transient ischemic attack) (Acute) - Secondary Discharge Diagnosis Chronic Problems: Chronic Problems Type 2 diabetes mellitus (Chronic) HTN (hypertension) (Chronic) Hyperlipidemia (Chronic) CAD (coronary artery disease) (Chronic) History of [place] (myocardial infarction) (Chronic) Hospital Course and Treatment Imaging Results: 11/07/20 07:04 Echo Complete W/ Contrast [ECHO] Routine 11/07/20 07:04 Brain without Contrast [MRI] Stat None Procedures: - - MRI brain Summary of Care Provided: I agree with the above and the following is representation my independent history and physical examination. Mr. Jasmine is a 60 year old WM with a past medical history of coronary artery disease status post PCI, hypertension, hyperlipidemia, DM-2, history of tobacco abuse, and BPH who presented to the emergency department [facility] early in the morning on 11/07/2020 planing of left-sided weakness. He reported at that time that he awakened in the middle the night to use the restroom and when he awoke he noted that his left lower extremity did not seem to be working properly but then after laying there for a few minutes he was able to go to the bathroom and make it back to bed. He reported that his left lower extremity gave out on him upon his return back to bed and caused him to fall onto his left side with his elbow taking most of the weight of a fall. In the emergency department he had a 1 cm full-thickness laceration of the left elbow and sutures were placed. His vital signs in the emergency department were normal other than hypertension with a blood pressure of 181 over to 120 initially with a repeat of 155/104. His troponin was less than 0.015, his chest x-ray showed no acute findings and the rest of his lab work was unimpressive. A CT and CTA of his head and neck were performed and showed an old lacunar infarct in the right basal ganglia with some calcified plaque in the left carotid bulb that was noted to be less than 20% and no aneurysms occlusions or dissections were noted. An EKG showed normal sinus rhythm with evidence of an old inferior infarct and the EKG was unchanged when compared to previous EKGs. He was given aspirin in the emergency department. Upon review of records, it appears that his PCI was done in 2016 at [facility]. He states that since that point time he stopped taking his statin because he had heard that it was bad for him nutritionally and stopped taking his aspirin and Plavix because he did not feel like taking them anymore. He was admitted to PCU for further work-up for stroke. An echocardiogram was performed and revealed mild concentric LVH and an EF of 37% which has declined since his last echo being 50%. He did have regional wall motion abnormalities consistent with his previous WV and all other segments were hypokinetic. He had no signs or sympt oms of acute heart failure. An MRI was performed and showed old cystic infarction of the right medial globus pallidus in the right anterior periventricular white matter but no MRI evidence of acute or subacute ischemic stroke were noted. The patient indicated that he had a desire to go home and follow-up as an outpatient and he wanted to be able to make it to [facility] in [facility]. He was restarted on aspirin 81 mg daily, his carvedilol was increased to 12.5 mg daily to improve blood pressure control, he was continued on his current dose of JO inhibitor, and atorvastatin 80 mg nightly was reinitiated. We asked that he follow-up with his primary care in 1 week. We asked that he follow-up with neurology in 2 weeks and cardiology in 2 weeks. He may need further cardiac work-up given his change in ejection fraction but is asymptomatic at the time of this admission. He was given contact information for both neurology and cardiology. He expressed understanding and the reason and importance for follow-up. Left elbow sutures may be removed in 7 to 10 days. Discharge diagnoses TIA Left elbow laceration CAD HFrEF-EF 37% DM-2 Hypertension Hyperlipidemia Obesity Discharge time greater than 35 minutes Subjective: Patient states he is currently asymptomatic. Reports that he stopped taking his aspirin and statin because of hearing but they cause nutritional deficiencies. He indicates he has not really followed up with cardiology. He states all of his symptoms that he experienced before coming in have resolved and stayed resolved since admission. - Physical Exam Vitals/I&O's: Vital Signs Temp Pulse Resp BP Pulse Ox 97.5 F L 78 16 150/97 H 97 11/07/20 11:28 11/07/20 11:28 11/07/20 11:28 11/07/20 11:28 11/07/20 11:28 Oxygen Delivery Method Room Air Weight: 111.1 kg Body Mass Index (BMI) 34.1 Finger Stick Blood Glucose 175 Intake and Output for Last 24 Hours 11/05/20 11/06/20 11/07/20 23:59 23:59 23:59 Intake Total 1381.26 / 1381.26 Balance 1381.26 / 1381.26 General: Alert, Oriented x3, Cooperative, No apparent distress, Well developed, Well nourished, - - Obese white male sitting up in the chair, watching television, appears comfortable, remains in street close HEENT: Atraumatic, PERRLA, EOMI, Normocephalic, EAC Clear Oral: Moist Mucosa, No Gingival or Mucosal Lesions/ Ulcerations, - - Mallampati 3, no thrush Neck: Supple, No JVD, Negative Carotid Bruits, No Nodes, No Nuchal Rigidity, Trachea Midline, Thyroid Normal Size and Texture, - - Short thick neck Lungs: Clear to auscultation, Normal air movement, No rhonchi, No wheeze, No rales Cardiovascular: Regular rate, Regular Rhythm, Normal S1, Normal S2, No murmurs, No Ectopic Activity, No rub noted, No Gallop Abdomen: Bowel Sounds Present, Soft, Non Tender, Non-Distended, Obese Extremities: No clubbing, No cyanosis, No edema, Capillary Refill Less than 3 Se conds, Peripheral Pulses Normal Skin: No rashes, No breakdown, - - Laceration left elbow dressing in place Musculoskeletal: No Muscle Wasting, Arthritic Changes, Tenderness - Left elbow Neurological: Cranial nerves II-XII grossly intact, Neuro grossly intact, Muscle tone normal, Coordination normal Psych/Mental Status: Normal Affect, Appropriate Laboratory Results 11/07/20 04:36: POC Glucose 175 H 11/07/20 04:41: WBC 4.7, RBC 4.82, Hgb 14.9, Hct 45.0, MCV 93.4, MCH 30.9, MCHC 33.1, RDW Std Deviation 49.6 H, RDW Coeff of Dio 14.4, Plt Count 218, MPV 11.1, Immature Gran % (Auto) 0.000, Neut % (Auto) 54.1, Lymph % (Auto) 27.3, [place] % (Auto) 14.8 H, Eos % (Auto) 3.2, Baso % (Auto) 0.6, Absolute Neuts (auto) 2.5, Absolute Lymphs (auto) 1.27, Nucleated RBC % 0 11/07/20 04:41: PT 12.3, INR 1.0, APTT 27.2 11/07/20 04:41: Sodium 139, Potassium 4.2, Chloride 106, Carbon Dioxide 26.0, Anion Gap 7, BUN 22 H, Creatinine 0.90, Estim Creat Clear Calc 90.64, Est GFR (MDRD) Af Amer 111, Est GFR (MDRD) Non-Af 91, BUN/Creatinine Ratio 24.6 H, Glucose 191 H, Calcium 9.1, Troponin I < 0.015 11/07/20 04:41: Magnesium 2.4 11/07/20 08:13: POC Glucose 156 H 11/07/20 11:42: POC Glucose 166 H Current Medications Acetaminophen (Acetaminophen 325 Mg Tablet) 650 mg PO Q6H PRN PRN PRN Reason: Pain Score 1-10/Temp > 100.7 F Last Admin: 11/07/20 11:36 Dose: 650 mg Documented by: Al Hydroxide/Mg Hydroxide (Mag Hydrox/Al Hydrox/Simeth 30 Ml Udc) 30 ml PO Q6H PRN PRN PRN Reason: Gastric Burning Albuterol Sulfate (Albuterol 2.5 Mg/3 Ml Vial.Neb.) 2.5 mg INHALATION Q2H PRN PRN PRN Reason: Dyspnea, wheezing Aspirin (Aspirin 81 Mg Tab.Chew) 81 mg PO DAILY@0800 [facility] Last Admin: 11/07/20 11:33 Dose: 81 mg Documented by: Atorvastatin Calcium (Atorvastatin Calcium 80 Mg Tablet) 80 mg PO QHS [facility] Carvedilol (Carvedilol 3.125 Mg Tablet) 3.125 mg PO BID [facility] Enoxaparin Sodium (Enoxaparin 40 Mg/0.4 Ml Syringe) 40 mg SC DAILY [facility] Last Admin: 11/07/20 11:33 Dose: 40 mg Documented by: Famotidine (Famotidine 20 Mg Tablet) 20 mg PO BID [facility] Last Admin: 11/07/20 11:32 Dose: 20 mg Documented by: Guaifenesin (Guaifenesin 10 Ml Udc (200mg/10ml)) 20 ml PO Q4H PRN PRN PRN Reason: COUGH Hydralazine HCl (Hydralazine 20 Mg/Ml Vial) 5 mg IV Q30M PRN PRN Reason: to maintain BP goals Sodium Chloride () 1,000 mls @ 100 mls/hr IV .Q10H [facility] Last Infusion: 11/07/20 11:30 Dose: 100 mls/hr Documented by: Insulin Human Lispro (Insulin Lispro 100 Unit/Ml Insuln.Pen) 0 unit SC [facility]; Protocol Last Admin: 11/07/20 12:25 Dose: 1 u Documented by: Labetalol HCl (Labetalol (Prefilled) 20 Mg/4 Ml) 10 - 20 mg IV Q10M PRN PRN PRN Reason: to Maintain BP Goals Lisinopril (Lisinopril 5 Mg Tablet) 5 mg PO DAILY RUFINO Magnesium Hydroxide (Magnesium Hydroxide 30 Ml Udc) 30 ml PO DAILY PRN PRN PRN Reason: Constipation Melatonin (Melatonin 3 Mg Tablet) 3 mg PO QHS PRN PRN PRN Reason: INSOMNIA Nitroglycerin (Nitroglycerin (Inpatient Use) 0.4 Mg Tab.Subl) 0.4 mg SL Q5M PRN PRN Reason: CARDIAC/CHEST PAIN Ondansetron HCl (Ondansetron 4 Mg/2 Ml Vial) 4 mg IV Q8H PRN PRN PRN Reason: NAUSEA/VOMITING Oxycodone HCl (Oxycodone 5 Mg Tablet) 5 mg PO Q4H PRN PRN PRN Reason: Pain Score 4-10 Prochlorperazine Edisylate (Prochlorperazine 10 Mg/2 Ml Vial) 5 mg IV Q4H PRN PRN PRN Reason: Breakthrough Nausea/Vomiting Psyllium Hydrophilic Mucilloid (Psyllium 1 Packet) 1 packet PO DAILY PRN PRN PRN Reason: Constipation Senna/Docusate Sodium (Senna/Docusate Sodium 1 Tablet) 2 tablet PO BID PRN PRN PRN Reason: Constipation Sodium Chloride (0.9% Saline Lock 10 Ml Syringe) 10 - 40 ml IV UD PRN PRN Reason: SALINE FLUSH Throat Lozenges (Benzocaine/Menthol 1 Lozenge) 1 lozenge MUCOUS MEM Q2H PRN PRN PRN Reason: SORE THROAT Inpatient E&M: 53745 Disch Hosp
[2020-11-07] MEDS: Insulin Lispro 100 UNIT/ML INSULN.PEN SC (12:25)
--- NOTE | 2020-11-07 14:21 | NURSING ---
all nursing care, medication administration, and documentation completed by SN John, on 11/07/20, done under the supervision of this RN.
== END 2020-11-07 12:23 | disposition home or self-care (01) ==
LOC: ED 05:59 → PCU 06:34
PROVIDERS: Admitting Provider Family Medicine; Emergency Provider Emergency Medicine; PCP Family Medicine; Visit Provider Internal Medicine
DX: G45.9 Transient cerebral ischemic attack, unspecified (principal); R53.1 Weakness; S51.012A Laceration without foreign body of left elbow, initial encounter; W18.30XA Fall on same level, unspecified, initial encounter; Y93.89 Activity, other specified; Y92.9 Unspecified place or not applicable; I25.10 Atherosclerotic heart disease of native coronary artery without angina pectoris; I11.0 Hypertensive heart disease with heart failure; I50.20 Unspecified systolic (congestive) heart failure; E78.5 Hyperlipidemia, unspecified; E11.9 Type 2 diabetes mellitus without complications; E66.9 Obesity, unspecified; Z68.34 Body mass index [BMI] 34.0-34.9, adult; Z87.891 Personal history of nicotine dependence; R29.700 NIHSS score 0; I25.2 Old myocardial infarction; Z79.899 Other long term (current) drug therapy; Z79.84 Long term (current) use of oral hypoglycemic drugs
CPT/HCPCS: 12001; 70496; 70498; 70551; 71045; 80048; 82962; 83735; 84484; 85025; 85610; 85730; 92523; 92610; 93005; 93306; 96360; 96361; 96372; 97162; 97165; 99218; 99285; J7030; Q9957; Q9967; A4216; C8929; G0378

== ENCOUNTER → 2021-01-15 09:08 | Outpatient (CLI) | payer BC, SELFPAY ==
[2021-01-14 08:49] VITALS: BMI 36.2
[2021-01-15 10:07] LABS: Vitamin B12 1074 pg/mL (211-911)
[2021-01-15 10:44] LABS: ALB/GLOB Ratio 1.1 RATIO (0.9-2.4); AST(SGOT) 15 U/L (15-37); Alanine Aminotransfer ALT/SGPT 31 U/L (16-61); Albumin, Serum 3.9 g/dL (3.2-5.0); Alkaline Phosphatase 117 U/L (45-117); Anion Gap 6 (5-15); BUN 12 mg/dL (7-18); Calcium,Total 9.3 mg/dL (8.5-10.1); Chloride 104 mmol/L (98-107); EST Glomerular Filtration Rate 80 mL/min (>60); Est Glom Filt Rate - Afr Amer 97 mL/min (>60); Globulin 3.7 g/dL (2.2-4.2); Glucose 205 mg/dL (74-106); Potassium 4.5 mmol/L (3.5-5.1); Protein, Total 7.6 g/dL (6.4-8.2); Sodium Level 138 mmol/L (136-145)
== END ==
PROVIDERS: PCP Family Medicine; Referring Provider Psychiatry & Neurology Neurology; Visit Provider Psychiatry & Neurology Neurology
DX: I67.9 Cerebrovascular disease, unspecified (principal); R53.83 Other fatigue
CPT/HCPCS: 36415; 80053; 82607; 82746

== ENCOUNTER 2021-04-09 12:44 | Outpatient (RCR) | payer BC, SELFPAY | END 2021-05-14 23:59 | LOC: IMMUN 12:44 | PROVIDERS: PCP Family Medicine; Referring Provider Family Medicine; Visit Provider Family Medicine | DX: Z23 Encounter for immunization (principal) ==